=== PATIENT | female | born 1960 | race Caucasian/White ===

== ENCOUNTER → 2017-08-04 | Outpatient (CLI) | payer OTHER | END | disposition home or self-care (01) | LOC: SOLHO 21:20 | PROVIDERS: ATTEND Family Medicine | DX: I51.9 Heart disease, unspecified (principal); I50.9 Heart failure, unspecified; J96.10 Chronic respiratory failure, unspecified whether with hypoxia or hypercapnia; E08.65 Diabetes mellitus due to underlying condition with hyperglycemia ==

== ENCOUNTER → 2017-08-05 | Outpatient (CLI) | payer OTHER | END | disposition home or self-care (01) | LOC: SOLHO 12:29 | PROVIDERS: ATTEND Family Medicine | DX: J96.10 Chronic respiratory failure, unspecified whether with hypoxia or hypercapnia (principal) ==

== ENCOUNTER 2017-09-23 23:30 | Emergency (ER) | payer OTHER ==
--- NOTE | 2017-09-23 23:48 | ED.PDOC ---
History of Present Illness - General Chief Complaint: GI Problem Stated Complaint: GT out Time Seen by Provider: 09/23/17 23:45 Source: RN notes reviewed, EMS notes reviewed Exam Limitations: clinical condition - History of Present Illness Initial Comments: [facility] PAT[facility] [place] [facility] AFTER THE G TUBE CAME OUT. EVIDENTLY THEY HAVE TRIED TO PLACE IT BACK UNSUCCESSFULLY. SHE IS A VENT PATIENT AND UNABLE TO GET ANY HISTORY. Timing/Duration: 1/2 hour Severity: mild Improving Factors: nothing Allergies/Adverse Reactions: Allergies Acetaminophen [From Vicodin] Allergy (Verified 09/23/17 23:41) Bacitracin [From Polysporin] Allergy (Verified 09/23/17 23:41) Codeine Allergy (Verified 09/23/17 23:41) Diazepam [From Valium] Allergy (Verified 09/23/17 23:41) Hydrocodone [From Vicodin] Allergy (Verified 09/23/17 23:41) Morphine Allergy (Verified 09/23/17 23:41) Polymyxin B [From Polysporin] Allergy (Verified 09/23/17 23:41) Home Medications: Ambulatory Orders Acetaminophen [Tylenol] 650 mg PEG Q4H PRN 12/20/14 Ascorbic Acid [Vitamin C] 500 mg PO DAILY 12/20/14 Famotidine 20 mg PEG DAILY 12/20/14 Ferrous Sulfate 440 mg PEG BID 12/20/14 Insulin Glargine 100U/ml [Lantus] 10 unit SUBCU BEDTIME 12/20/14 Insulin Regular (Human) [Humulin R] 0 unit SUBCU QID 12/20/14 Levothyroxine Sodium [Synthroid] 125 mcg PEG DAILY 12/20/14 Lorazepam [Ativan] 0.5 mg PO Q6HRS PRN 12/20/14 metFORMIN HCL [Glucophage] 850 mg PEG BID 12/20/14 Sertraline HCl [Zoloft] 50 mg PEG DAILY 07/06/15 Acetylcysteine 10 % INH BID 02/02/16 Apixaban [Eliquis] 5 mg PEG BID 02/02/16 Arformoterol Tartrate [Brovana] 15 mcg INH BID 02/02/16 Dextromethorphan-Guaifenesin [Sylvie-Tussin Dm] 1 syp PEG TID 02/02/16 Ipratropium/Albuterol [Duoneb] 3 ml NEB Q4H PRN 02/02/16 Ipratropium/Albuterol [Duoneb] 3 ml NEB Q6H 02/02/16 Review of Systems - Review of Systems Unable to Obtain Due To: intubated Past Medical History (General) - Patient Medical History Hx Seizures: No Hx Stroke: No Hx Dementia: No Hx Asthma: No Hx of COPD: No Hx Cardiac Disorders: Yes - hyperlipidemia, afib Hx Congestive Heart Failure: No Hx Pacemaker: No Hx Hypertension: Yes Hx Thyroid Disease: No Hx Diabetes: Yes Hx Renal Disease: No Hx Cancer: No Hx of HIV: No Hx Hepatitis C: No Hx MRSA: No - Vaccination History Hx Tetanus, Diphtheria Vaccination: - unknown Hx Influenza Vaccination: - unknown Hx Pneumococcal Vaccination: - unknown - Social History Hx Tobacco Use: No - unknown Hx Chewing Tobacco Use: No Hx Alcohol Use: No Hx Substance Use: No Hx Substance Use Treatment: No Hx Depression: No Hx Physical Abuse: No Hx Emotional Abuse: No Hx Suspected Abuse: No - Female History Patient : No Family Medical History - Family History Father Family History: Unknown Living Status: Still Living Physical Exam - Physical Exam General Appearance: Lethargic, Other - INTUBATED Respiratory: lungs clear, normal breath sounds Cardiovascular/Chest: regular rate, rhythm Gastrointestinal/Abdominal: normal bowel sounds, distended Rectal Exam: deferred Progress - Results/Orders Results/Orders: TUBE PLACEMENT SATISFACTORY SHOWN ON GASTROGRAFIN FILM. Procedures - Additional Procedures Additional Procedures: gastric tube replacement - no g tubes or butons. a number 20 mejia catheter was replaced as feeding tube. gastrografin injection to follow. Departure - Departure Clinical Impression: Dislodged gastrostomy tube Time of Disposition: 00:54 Disposition: Discharge to SNF Condition: Fair Departure Forms: ED Discharge - Pt. Copy, Patient Portal Self Enrollment Instructions: DI for Abdominal Pain -- Child Referrals: ARTEMIO MUELLER [Primary Care Provider] - 1-2 Weeks Home Medications: Ambulatory Orders Acetaminophen [Tylenol] 650 mg PEG Q4H PRN 12/20/14 Ascorbic Acid [Vitamin C] 500 mg PO DAILY 12/20/14 Famotidine 20 mg PEG DAILY 12/20/14 Ferrous Sulfate 440 mg PEG BID 12/20/14 Insulin Glargine 100U/ml [Lantus] 10 unit SUBCU BEDTIME 12/20/14 Insulin Regular (Human) [Humulin R] 0 unit SUBCU QID 12/20/14 Levothyroxine Sodium [Synthroid] 125 mcg PEG DAILY 12/20/14 Lorazepam [Ativan] 0.5 mg PO Q6HRS PRN 12/20/14 metFORMIN HCL [Glucophage] 850 mg PEG BID 12/20/14 Sertraline HCl [Zoloft] 50 mg PEG DAILY 07/06/15 Acetylcysteine 10 % INH BID 02/02/16 Apixaban [Eliquis] 5 mg PEG BID 02/02/16 Arformoterol Tartrate [Brovana] 15 mcg INH BID 02/02/16 Dextromethorphan-Guaifenesin [Sylvie-Tussin Dm] 1 syp PEG TID 02/02/16 Ipratropium/Albuterol [Duoneb] 3 ml NEB Q4H PRN 02/02/16 Ipratropium/Albuterol [Duoneb] 3 ml NEB Q6H 02/02/16
[2017-09-23 23:57] VITALS: O2SAT 100
--- NOTE | 2017-09-24 01:03 | RAD ---
EXAM DESCRIPTION: KUB CLINICAL HISTORY: 57 years Female g tube placement COMPARISON: None. TECHNIQUE: Single view of the abdomen. FINDINGS: There is leftward convexity curvature in the spine with spinal fixation rods. There is a G-tube in the left abdomen. Injection of the G-tube with contrast demonstrates filling of the stomach with normal pattern and the rugal folds. No obvious extravasation is seen on the images provided. IMPRESSION: G-tube in the region of the distal gastric body Electronically signed by: Chantal Rodriguez MD 09/24/2017 1:02 AM [facility]
[2017-09-24 01:35] VITALS: BP 113/57; TEMP 99
== END 2017-09-24 01:25 ==
LOC: ER 23:30
DX: K94.29 Other complications of gastrostomy (principal); I48.91 Unspecified atrial fibrillation; E78.5 Hyperlipidemia, unspecified; E11.9 Type 2 diabetes mellitus without complications; I10 Essential (primary) hypertension; Z79.4 Long term (current) use of insulin; Z79.899 Other long term (current) drug therapy; Z99.11 Dependence on respirator [ventilator] status